=== PATIENT | female | born 1980 | race Caucasian/White ===

== ENCOUNTER 2016-07-10 13:13 | Emergency (ER) | payer MEDICARE, MEDICAID ==
[~2016-07-10] VITALS: Ht 162.6 cm; Wt 132.2 kg
[2016-07-10 13:20] VITALS: BP 124/83
--- NOTE | 2016-07-10 14:05 | RAD ---
Indication: Wrist pain after fall today. Technique: 3 views of the right wrist are submitted for review. No comparison is available. Findings: There is no fracture or dislocation. There is no osseous lesion. Impression: Negative for fracture.
--- NOTE | 2016-07-10 14:06 | RAD ---
Indication: Pain after fall. Technique: Right ankle series contains 3 images. No comparison is available. Findings: There is soft tissue swelling. There is no fracture or dislocation. Impression: Negative for fracture.
--- NOTE | 2016-07-10 14:24 | PHYS DOC ---
Adult General Chief Complaint Chief Complaint: MULTIPLE COMPLAINTS HPI HPI Patient is a 36-year-old female ambulatory to the emergency department with a friend who is also here checking in to be seen. Patient states that she woke up this morning with nausea, she ran into the bathroom to vomit, she fell and injured her right wrist and right ankle. She wants to know why she vomited. Patient comes in with a large drink cup From [employer]. I ask her when and what she last ate, she states they stopped at [employer] on the way here and she had a double cheeseburger "extreme" with tater tots, with jalapenos on those. She stated she is still somewhat nauseated. Review of Systems Review of Systems Constitutional: Denies fever or chills [] GI: As in history of present illness : Denies Musculoskeletal: As in history of present illness Neurologic: Denies head injury Allergies Allergies Allergies Coded Allergies Type Severity Reaction Last Updated Verified Penicillins Allergy Unknown 07/10/16 Yes paroxetine Allergy Unknown 07/10/16 Yes Physical Exam Physical Exam Constitutional: Obese female, ambulatory, no acute distress, alert and mentating normally HENT: Normocephalic, atraumatic, bilateral external ears normal, nose normal. [ ] Eyes:conjunctiva normal, no discharge. [] Neck: Normal range of motion, , no stridor. [] Skin: Warm, dry, no erythema, no rash. [] Extremities: Right wrist without swelling, deformity, or ecchymosis. There is mild tenderness across the distal radius. No snuffbox tenderness. Right knee nontender, right lower leg nontender. Right ankle mildly tender to palpation on medial and lateral aspects. No swelling. No ecchymosis. No deformity. No tenderness of the right foot. Neurologic: Alert and oriented X 3, normal motor function, normal sensory function, no focal deficits noted. [] EKG EKG [] Radiology/Procedures Radiology/Procedures Three-view x-ray of the right wrist and three-view x-ray of the right ankle interpreted by the radiologist. No acute bony injury. [] Course & Med Decision Making Course & Med Decision Making Pertinent Labs and Imaging studies reviewed. (See chart for details) 36-year-old female with right wrist and ankle injury from a fall this morning, x -rays are negative. Advised the patient to take ibuprofen and use ice for 3-5 days. Patient also mentioned a concern of nausea with some vomiting earlier this morning. Shortly prior to arrival in the ED she ate a sonic double cheeseburger "extreme" with tater tots, with jalapenos on those. I advised her that with nausea it would be advisable to eat and drink food and drink that would be more soothing to the stomach such as chicken noodle soup or Jell-O. [] Dragon Disclaimer Dragon Disclaimer This chart was dictated in whole or in part using Voice Recognition software in a busy, high-work load, and often noisy Emergency Department environment. It may contain unintended and wholly unrecognized errors or omissions. Departure Departure: Impression: Primary Impression: Mild sprain of right ankle Additional Impression: Right wrist sprain Disposition: 01 HOME, SELF-CARE Condition: STABLE Patient Instructions: Ankle Sprain, [id number] Additional Instructions: Ice to areas of pain and swelling 15-20 minutes out of every 1-2 hours. Elevate. Try to stay off of them. Ibuprofen if needed for pain. Problem Qualifiers ALCIDES JOHNSON MD July 10, 2016 14:24
== END 2016-07-10 13:55 | disposition home or self-care (01) ==
LOC: ER 13:13
DX: S93.401A Sprain of unspecified ligament of right ankle, initial encounter (principal); S63.501A Unspecified sprain of right wrist, initial encounter; R11.2 Nausea with vomiting, unspecified; Z88.0 Allergy status to penicillin; Z88.8 Allergy status to other drugs, medicaments and biological substances; W19.XXXA Unspecified fall, initial encounter; Y93.02 Activity, running; Y99.8 Other external cause status; Y92.89 Other specified places as the place of occurrence of the external cause
CPT/HCPCS: 73110; 73610; 99284